=== PATIENT | male | born 1940 | race Caucasian/White ===

== ENCOUNTER → 2017-05-09 | Outpatient (CLI) | payer MEDICARE, BC ==
--- NOTE | 2017-05-09 15:15 | XR ---
EXAMINATION TYPE: XR chest 2V DATE OF EXAM: 05/09/2017 COMPARISON: NONE TECHNIQUE: PA and lateral views submitted. HISTORY: Cough FINDINGS: The lungs are clear and there is no pneumothorax, pleural effusion, or focal pneumonia. Hypertrophi c and degenerative change of the spine. Ectasia of the aorta. Arthropathy of the AC joints. No overt failure. IMPRESSION: 1. No acute process.
== END | disposition home or self-care (01) ==
LOC: RADXRMAIN 14:42
PROVIDERS: ATTEND Internal Medicine
DX: R05 Cough (principal)
CPT/HCPCS: 71046

== ENCOUNTER → 2017-08-03 | Outpatient (CLI) | payer MEDICARE, BC ==
--- NOTE | 2017-08-03 15:08 | US ---
EXAMINATION TYPE: US kidneys/renal and bladder DATE OF EXAM: 08/03/2017 COMPARISON: NONE CLINICAL HISTORY: R31.9 Hematuria, unspecified; diabetic EXAM MEASUREMENTS: Right Kidney: 10.7 x 6.1 x 5.8` cm Left Kidney: 11.4 x 5.3 x 5.8 cm Post Void Residual Volume: 25.9 mL Right Kidney: very small cortical cyst at lower pole Left Kidney: very small medial cortical cyst = 0.7 x 0.6 x 0.4cm; appearance of clustered calcificati ons (hyperechoic oval area noted lower pole) with posterior shadowing = 0.8 x 0.7 x 0.7cm Bladder: wnl Bilateral Jets seen: yes Normal Post Void Residual: yes There is no evidence for hydronephrosis at this point in time. Bilateral ureteral jets are seen. IMPRESSION: 1. Subcentimeter left renal cortical cyst. 2. Inferior pole left renal calcification.
== END | disposition home or self-care (01) ==
LOC: RADUSWWP 13:40
PROVIDERS: ATTEND Internal Medicine
DX: N28.1 Cyst of kidney, acquired (principal); N28.89 Other specified disorders of kidney and ureter
CPT/HCPCS: 76770

== ENCOUNTER 2018-06-16 07:37 | Day surgery (SDC) | payer MEDICARE, BC ==
[2018-06-14 13:23] VITALS: BMI 32.0
[2018-06-16 07:57] VITALS: TEMP 97.2
[2018-06-16] MEDS ORDERED: LACTATED RINGERS 1,000 ML IV ONE (07:57)
[2018-06-16 08:09] LABS: Glucose,Whole Blood 161 mg/dL (75-99)
[2018-06-16] MEDS ORDERED: PROPOFOL 10 MG/ML 20 ML VIAL IV ONE (09:07)
[2018-06-16] MEDS ORDERED: LACTATED RINGERS 1,000 ML IV SCH (09:22)
[2018-06-16] MEDS ORDERED: IV FLUID CONTINUATION 400 ML IV ONE (09:35)
--- NOTE | 2018-06-16 09:35 | P.PCN ---
Date of Procedure: 06/16/18 Procedure(s) Performed: BRIEF HISTORY: Patient is a 77-year-old pleasant, white male scheduled for an elective colonoscopy as a part of screening for colorectal neoplasia. PROCEDURE PERFORMED: Colonoscopy with snare polypectomy. PREOPERATIVE DIAGNOSIS: Screening for colon cancer. IV sedation per Anesthesia. PROCEDURE: After informed consent was obtained, the patient, was brought into the endoscopy unit. IV sedation was administered by Anesthesia under continuous monitoring. Digital rectal examination was normal. Initially the Olympus CF-160 flexible video colonoscope was then inserted in the rectum, gradually advanced into the cecum without any difficulty. Careful examination was performed as the scope was gradually being withdrawn. Ileocecal valve and the appendiceal orifice were visualized and appeared normal. Prep was excellent. In the base of cecum there was a 5 mm sessile polyp removed by snare polypectomy. In the ascending colon there was a 3-4 mm sessile polyp removed by snare polypectomy. In the transverse colon there was a 7 mm polyp removed by snare polypectomy. In the sigmoid colon there was a 5 mm polyp removed by snare polypectomy.In the descending colon there was a 7 mm polyp removed by snare polypectomy. Scattered sigmoid diverticula seen. Rectum appeared normal. Retroflexion was performed in the rectum and grade 2 internal hemorrhoids were seen. The patient tolerated the procedure well. IMPRESSION: 5 mm cecal polyp status post polypectomy 3-4 mm sessile ascending colon polyp status post polypectomy 7 mm sessile transverse colon polyp status post polypectomy 5 mm descending colon polyp status post polypectomy 5 mm sigmoid colon polyp status post polypectomy Scattered sigmoidal diverticulosis Grade 2 internal hemorrhoids RECOMMENDATIONS: Findings of this examination were discussed with the patient well as his family. He was advised to follow with the biopsy results. If biopsy shows adenoma, he can have a repeat colonoscopy in 3 years removed by snare polypectomy..
[2018-06-16 10:00] VITALS: BP 135/78; PULSE 50; RESP 18
== END 2018-06-16 10:29 | disposition home or self-care (01) ==
LOC: ORWHC2ENDO 07:37
PROVIDERS: ATTEND Internal Medicine Gastroenterology
DX: Z12.11 Encounter for screening for malignant neoplasm of colon (principal); K64.1 Second degree hemorrhoids; K57.30 Diverticulosis of large intestine without perforation or abscess without bleeding; D12.0 Benign neoplasm of cecum; D12.3 Benign neoplasm of transverse colon; D12.5 Benign neoplasm of sigmoid colon; D12.2 Benign neoplasm of ascending colon; I10 Essential (primary) hypertension; E78.5 Hyperlipidemia, unspecified; E11.9 Type 2 diabetes mellitus without complications; Z79.84 Long term (current) use of oral hypoglycemic drugs; Z79.82 Long term (current) use of aspirin; Z79.899 Other long term (current) drug therapy
CPT/HCPCS: 88305; 45385; J2704

== ENCOUNTER 2020-04-24 06:15 | Day surgery (SDC) | payer MEDICARE, BC ==
[2020-04-18 09:04] VITALS: BMI 30.8
[~2020-04-24 06:15] MED LIST: ALPRAZolam 0.25 MG TAB PO PRN; ALPRAZolam 0.5 MG TAB PO PRN; ASPIRIN 325 MG TAB PO STA; ATORVASTATIN 80 MG TAB PO STA; HEPARIN SODIUM,PORCINE 10,000 UNIT in SODIUM CHLORIDE 0.9% 1,000 ML IRRIGATION PRN; HEPARIN SODIUM,PORCINE 2,500 UNIT in SODIUM CHLORIDE 0.9% 250 ML IRRIGATION PRN; NITROGLYCERIN SL TABS 0.4 MG TAB SUBLINGUAL PRN; SODIUM CHLORIDE 0.9% 1,000 ML in EMPTY BAG 1 BAG IV ONE
[2020-04-24] MEDS ORDERED: SODIUM CHLORIDE 0.9% 1,000 ML IV ONE (06:27)
[2020-04-24 06:43] VITALS: RESP 16; TEMP 97.3
[2020-04-24 06:46] LABS: Glucose,Whole Blood 180 mg/dL (75-99)
[2020-04-24] MEDS ORDERED: LIDOCAINE 1% INJ 10MG/ML (20 ML MDV) ONE (07:27)
[2020-04-24] MEDS ORDERED: VERAPAMIL 2.5 MG/ML 2 ML AMP ONE (07:27)
[2020-04-24] MEDS ORDERED: fentaNYL (PF) 50 MCG/ML 2 ML AMP ONE (07:27)
[2020-04-24] MEDS ORDERED: HEPARIN SODIUM 1,000 UN/ML (10ML VL) ONE (07:27)
[2020-04-24] MEDS ORDERED: fentaNYL (PF) 50 MCG/ML 2 ML AMP IV ONE (07:48)
[2020-04-24] MEDS ORDERED: LIDOCAINE 1% INJ 10MG/ML (20 ML MDV) SQ ONE (07:51)
[2020-04-24] MEDS ORDERED: VERAPAMIL SYRINGE (5 MG/10 ML) INTRAARTER ONE (07:54)
[2020-04-24] MEDS ORDERED: IOPAMIDOL-370 125ML BTL INJ ONE (08:06)
[2020-04-24] MEDS ORDERED: RX INFO: IV CONTRAST WAS GIVEN 1 EACH MISC MISCELLANE PRN (08:19)
[2020-04-24] MEDS ORDERED: SODIUM CHLORIDE 0.9% 1,000 ML IV SCH (08:30)
--- NOTE | 2020-04-24 08:49 | CC ---
CARDIAC CATHETERIZATION REPORT Mr. Rice is an 79-year-old male with a known history of hypertension, hyperlipidemia, diabetes mellitus, who was found to have a left bundle branch block and evidence of impairment of left ventricular systolic function with an inferior wall defect. In view of that, recommendation was made regarding cardiac catheterization. The procedure as well as the risks and the complications were discussed with the patient who is in full understanding and agreement. PROCEDURE: Patient was brought to laboratory manager in a fasting semi-sedated state after receiving fentanyl and Benadryl and achieving moderate conscious sedated state. Using Xylocaine anesthesia and the Seldinger technique, 6-[place] sheath was introduced in the right radial artery. Selective right and left coronary angiography were performed using 5- [place] 3.5 bend right and left Linus catheter. Multiple views of the coronary artery including hemiaxial views were obtained. Following that, catheter and sheath were removed. Hemostasis was obtained with deployment of a TR band. There was no immediate complication. Patient was returned to his room in stable condition. Of note, the patient received 5000 units of intravenous heparin as well as intra-arterial verapamil. FINDINGS: FLUOROSCOPY: There is calcification involving all the coronary arteries of moderate degree. LEFT MAIN: This is a large-size vessel, bifurcating into left circumflex, left anterior descending artery. Left main coronary artery has no evidence of high-grade stenosis. LEFT ANTERIOR DESCENDING ARTERY: This is a large-size vessel reaching to the apex, heavily calcified proximally giving rise to 2 diagonal branches of moderate caliber. The left anterior descending artery has mild intimal disease of 10% to 20% proximal segment without any evidence of high-grade stenosis. LEFT CIRCUMFLEX: This is a nondominant vessel, large in caliber giving rise to 2 obtuse marginal branches. The left circumflex has mild intimal disease proximally without any evidence of high-grade stenosis. RIGHT CORONARY ARTERY: This is a large dominant vessel bifurcating distally PDA and posterolateral segment and branches, calcified, has a mild plaque proximally of 10% to 20% without any evidence of high-grade stenosis. LEFT VENTRICULOGRAM: Left ventriculogram was not performed. CONCLUSION: 1. Calcified coronary arteries. 2. Mild triple-vessel coronary artery disease. RECOMMENDATION: In view of finding anatomy, I recommend continue medical therapy with aggressive coronary risk modifications that have been initiated. Those findings and recommendation were discussed with the patient and his family and they are in full understanding and agreement. Duration of sedation is 18 minutes. MMODL / IJN: [id number] /
--- NOTE | 2020-04-24 08:53 | LTR ---
April 24, 2020 Re: Shedlon Rice Dear Dr. Cruz: I had the opportunity to perform cardiac catheterization on Mr. Rice at [facility] on the 24 of April and a full copy of the procedure note will be forwarded to you. In brief, he was found to have calcified coronary arteries with mild triple- vessel coronary artery disease and no evidence of high-grade stenosis. Based on those findings, I recommend to continue medical therapy and to follow up his left ventricular systolic function to see if there is any further intervention will be needed. I will keep you updated on his progress. Thank you again for allowing me the opportunity to participate in his care. Please feel free to call for any questions. Sincerely yours, MD JENNY nAand / ELIO: [id number] /
[2020-04-24] MEDS ORDERED: MULTIVITAMINS, THERA 1 EACH TAB PO SCH (09:00)
[2020-04-24 12:31] VITALS: BP 132/72; PULSE 67
[2020-04-24] MEDS ORDERED: LOSARTAN 50 MG TAB PO SCH (21:00)
[2020-04-24] MEDS ORDERED: PRAVASTATIN SODIUM 40 MG TAB PO SCH (21:00)
[2020-04-25] MEDS ORDERED: ASPIRIN 81 MG PO SCH (09:00)
== END 2020-04-24 12:31 | disposition home or self-care (01) ==
LOC: CATHCVL 06:15
PROVIDERS: ATTEND Internal Medicine Interventional Cardiology
DX: I25.10 Atherosclerotic heart disease of native coronary artery without angina pectoris (principal); I25.84 Coronary atherosclerosis due to calcified coronary lesion; I10 Essential (primary) hypertension; E78.00 Pure hypercholesterolemia, unspecified; E11.9 Type 2 diabetes mellitus without complications; I49.1 Atrial premature depolarization; I49.3 Ventricular premature depolarization; I42.8 Other cardiomyopathies; E78.2 Mixed hyperlipidemia; Z87.891 Personal history of nicotine dependence; Z79.84 Long term (current) use of oral hypoglycemic drugs; Z79.82 Long term (current) use of aspirin; Z79.899 Other long term (current) drug therapy
CPT/HCPCS: 93454; C1769; C1894; J2001; J3010; J1644; Q9967

== ENCOUNTER → 2021-06-19 | Outpatient (CLI) | payer MEDICARE, BC ==
[2021-06-19 22:26] LABS: HCT 41.8 % (39.6-50.0); HGB 13.4 g/dL (13.0-17.0); MCH 31.8 pg (27.0-32.0); MCHC 32.1 g/dL (32.0-37.0); MCV 99.1 fL (80.0-97.0); Mean Platelet Volume 10.4 fL (9.5-12.2); NRBC Per 100 WBC 0 /100 WBCS (0.0-0.0); Platelet Count 238 X 10*3/uL (140-440); RBC 4.22 X 10*6/uL (4.40-5.60); RDW 13.3 % (11.5-14.5)
[2021-06-19 22:43] LABS: African American GFR (CKD) 69.5 (60.0-200.0); Anion Gap 14.1 mmol/L (10.00-18.00); Blood Urea Nitrogen 19.8 mg/dL (9.0-27.0); Carbon Dioxide 21.7 mmol/L (20.0-27.5); Potassium 4.8 mmol/L (3.5-5.5)
== END | disposition home or self-care (01) ==
LOC: LABPAT 15:37
PROVIDERS: ATTEND Internal Medicine Clinical Cardiac Electrophysiology
DX: Z01.812 Encounter for preprocedural laboratory examination (principal); I42.8 Other cardiomyopathies
CPT/HCPCS: 80051; 82565; 84520; 85027

== ENCOUNTER → 2023-08-12 | Outpatient (CLI) | payer MEDICARE ==
--- NOTE | 2023-08-18 12:00 | CT ---
EXAMINATION TYPE: CT lumbar spine wo con CT DLP: 1353.0 mGycm, Automated exposure control for dose reduction was used. DATE OF EXAM: 08/12/2023 1:47 PM COMPARISON: None. 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 Soft tissue and bone windows in coronal and sagittal planes were obtained and reviewed. Contrast used: none. Oral contrast used: none. FINDINGS: Alignment: There are 5 lumbar type vertebral bodies. Grade 1 anterolisthesis of L5 on S1 with bilater al pars defects. Few foci of gas identified posterior right to the L5-S1 disc likely from disc degene ration. Bone: No evidence of fracture is identified. 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 Degenerative changes of the bilateral SI joints. Discs: T12-L1: No spinal canal or neural foraminal stenosis is identified. L1-L2: No spinal canal or neural foraminal stenosis is identified. L2-L3: Eccentric right broad-based disc bulge with ligamentum flavum buckling contributing to moderat e central canal stenosis. Bilateral facet arthropathy resulting in mild to moderate bilateral neural foraminal narrowing. L3-L4: Broad-based disc bulge with bilateral ligamentum flavum thickening contributing to mild centra l canal narrowing. Bilateral facet arthropathy with minimal bilateral neural foraminal narrowing. L4-L5: Minimal broad-based disc bulge with ligamentum flavum buckling contribute to minimal central c anal narrowing. Bilateral facet arthropathy resulting in mild bilateral neural foraminal narrowing. L5-S1: Grade 1 anterolisthesis with bilateral pars defects. There is uncovering of the disc. Gas is i dentified posterior right at this level extending into the spinal canal from disc degeneration. Vacuu m disc disease identified. Bilateral facet arthropathy. No significant central canal stenosis. Modera te to severe bilateral neuroforaminal stenosis. Other: Bibasilar subsegmental atelectasis within the visualized lungs. At least mild stenosis at the origins of the SMA and celiac arteries secondary to atherosclerotic plaque. Partial visualization of sigmoid diverticulosis. Moderate amount of stool is present within the rectum. IMPRESSION: 1. Grade 1 anterolisthesis of L5 on S1 with bilateral pars defects. 2. No CT evidence for disc herniation. Mild to moderate multilevel degenerative disc disease and face t arthropathy as described above. This is most pronounced at L2-L3 with moderate central canal stenos is.
== END | disposition home or self-care (01) ==
LOC: RADCTMAIN 13:13
PROVIDERS: ATTEND Physical Medicine & Rehabilitation
DX: M47.817 Spondylosis without myelopathy or radiculopathy, lumbosacral region (principal); M47.816 Spondylosis without myelopathy or radiculopathy, lumbar region; M48.061 Spinal stenosis, lumbar region without neurogenic claudication; M51.37 Other intervertebral disc degeneration, lumbosacral region
CPT/HCPCS: 72131

== ENCOUNTER → 2024-06-22 | Outpatient (CLI) | payer MEDICARE ==
[2024-06-22 12:37] LABS: Partial Thromboplastin Time 23.7 sec (22.0-30.0); Prothrombin Time 11.2 sec (10.0-12.5)
[2024-06-22 15:48] LABS: Basophils # (A) 0.04 X 10*3/uL (0.00-0.10); Basophils % (A) 0.6 %; Eosinophils # (A) 0.48 X 10*3/uL (0.04-0.35); Eosinophils % (A) 7.6 %; HCT 41.7 % (39.6-50.0); HGB 13.5 g/dL (13.0-17.0); Lymphocytes # (A) 1.71 X 10*3/uL (0.90-5.00); Lymphocytes % (A) 27.2 %; MCH 32.1 pg (27.0-32.0); MCHC 32.4 g/dL (32.0-37.0); MCV 99.3 FL (80.0-97.0); Mean Platelet Volume 9.7 FL (9.5-12.2); Monocytes # (A) 0.81 X 10*3/uL (0.20-1.00); Monocytes % (A) 12.9 %; NRBC Per 100 WBC 0 X 10*3/uL (0.00-0.01); Neutrophils # (A) 3.23 X 10*3/uL (1.80-7.70); Neutrophils % (A) 51.4 %; Platelet Count 220 X 10*3/uL (140-440); RDW 13.2 % (11.5-14.5); WBC 6.29 X 10*3/uL (4.50-10.00)
[2024-06-22 16:56] LABS: Blood Urea Nitrogen 21.3 mg/dL (9.0-27.0); Calcium 9.8 mg/dL (8.7-10.3); Carbon Dioxide 22.7 mmol/L (21.6-31.8); Chloride 104 mmol/L (96-109); Glucose 100 mg/dL (70-110); Potassium 4.5 mmol/L (3.5-5.5); Sodium 140 mmol/L (135-145)
[2024-06-22 16:57] LABS: ALT 30 U/L (10-49); AST 29 U/L (14-35); Albumin 4.4 g/dL (3.8-4.9); Albumin/Globulin Ratio 1.83 Ratio (1.60-3.17); Alkaline Phosphatase 76 U/L (41-126); Bilirubin, Conjugated 0.45 mg/dL (0.20-0.40); Bilirubin,Unconjugated 0.55 mg/dL (0.20-1.00); Globulin 2.4 g/dL (1.6-3.3); Total Protein 6.8 g/dL (6.2-8.2)
[2024-06-22 16:59] LABS: Prealbumin 18.9 mg/dL (18.0-42.0)
== END | disposition home or self-care (01) ==
LOC: LABWHC1 11:54
PROVIDERS: ATTEND Orthopaedic Surgery
DX: Z01.89 Encounter for other specified special examinations (principal); Z13.1 Encounter for screening for diabetes mellitus; K76.9 Liver disease, unspecified; Z79.899 Other long term (current) drug therapy
CPT/HCPCS: 36415; 80048; 80076; 82306; 82985; 83036; 84134; 84466; 85025; 85610; 85730; 87070